=== PATIENT | male | born 1985 | race Two or more races ===

== ENCOUNTER 2020-03-17 16:24 | Emergency (ER) | payer MEDICAID ==
[~2020-03-17] VITALS: Ht 172.7 cm; Wt 74.8 kg
[2020-03-17] MEDS ORDERED: LIDOCAINE 2% (LOCAL ANESTH.) PF 5ml SDV ONE (16:48)
[2020-03-17] MEDS ORDERED: LIDOCAINE 2%HCL (LOCAL ANESTH.) INJ 10ml MDV IJ ONE (17:00)
[2020-03-17] MEDS ORDERED: cefTRIAXone SOD 1,000 MG VL ONE (17:03)
[2020-03-17] MEDS ORDERED: cefTRIAXone 1GM/50ML D5W 50 ML IV ONE (17:15)
[2020-03-17] MEDS ORDERED: SODIUM CHLORIDE 0.9% 1,000 ML IV ONE (17:17)
[2020-03-17 17:36] LABS: Basophils # (auto) 0 10 ^3/uL (0-0.2); Basophils % (auto) 0.5 % (0.0-2.0); Eosinophils # (auto) 0 10 ^3/uL (0-0.8); Eosinophils % (auto) 0.5 % (0.0-7.0); Hematocrit 51.1 % (41.0-53.0); Hemoglobin 17.1 g/dL (13.5-17.5); Lymphocytes # (auto) 1.5 10 ^3/uL (0.4-5.4); Lymphocytes % (auto) 17.6 % (10.0-50.0); Mean Corpuscular Hemoglobin 30.9 pg (28.0-32.0); Mean Corpuscular Hgb Conc. 33.5 g/dL (32.0-36.0); Mean Corpuscular Volume 92.3 fL (80.0-100.0); Monocytes # (auto) 0.3 10 ^3/uL (0-1.3); Neutrophils # (auto) 6.6 10 ^3/uL (1.6-8.6); Neutrophils % (auto) 77.4 % (37.0-80.0); Nucleated Red Blood Cells % 0.1 %; Platelet Count (auto) 383 10^3/uL (140-450); Red Blood Cells 5.54 10^6/uL (4.5-5.90); White Blood Cell 8.5 10^3/uL (4.4-10.8)
[2020-03-17 17:43] LABS: Albumin 4.2 g/dL (3.4-5.0); BUN/Creatinine Ratio 7.4; Calcium 8.7 mg/dL (8.5-10.1); Magnesium 3.1 mg/dL (1.6-2.6); Potassium 3.6 mmol/L (3.5-5.1)
[2020-03-17 17:46] LABS: Bilirubin, Total 0.9 mg/dL (0.2-1.0); Total Protein 8.5 g/dL (6.4-8.2)
[2020-03-17 19:27] VITALS: BP 108/81
== END 2020-03-17 19:48 | disposition still patient (30) ==
LOC: ER 16:24
DX: S61.511A Laceration without foreign body of right wrist, initial encounter (principal); F10.20 Alcohol dependence, uncomplicated; F12.10 Cannabis abuse, uncomplicated; Y90.9 Presence of alcohol in blood, level not specified; X99.1XXA Assault by knife, initial encounter; Y93.89 Activity, other specified; Y92.89 Other specified places as the place of occurrence of the external cause; Y99.8 Other external cause status
CPT/HCPCS: 12002; 36415; 73110; 80053; 83735; 85025; 96365; 99285; J0696; J2001; 12042

== ENCOUNTER 2020-05-05 19:05 | Emergency (ER) | payer MEDICAID ==
[~2020-05-05] VITALS: Ht 170.2 cm; Wt 74.8 kg
[2020-05-05 19:11] VITALS: BP 131/97
== END 2020-05-05 22:48 | disposition home or self-care (01) ==
LOC: ER 19:05
DX: S61.511D Laceration without foreign body of right wrist, subsequent encounter (principal); M25.531 Pain in right wrist; F10.20 Alcohol dependence, uncomplicated; Y90.9 Presence of alcohol in blood, level not specified; X58.XXXD Exposure to other specified factors, subsequent encounter